=== PATIENT | male | born 1975 | race Caucasian/White ===

== ENCOUNTER 2019-11-14 09:28 | Inpatient (IN) | payer BC, SELFPAY ==
[~2019-11-14] VITALS: Ht 180.3 cm; Wt 167.4 kg
--- NOTE | 2019-11-14 09:28 | NUR ---
STEFANO JIMENEZ ALS TO ER BED 02. RN EVALUATING AT BEDSIDE.
--- NOTE | 2019-11-14 09:30 | NUR ---
C/O SOB, FEVER X 6 DAYS. DIARRHEA AND NAUSEA X 3 DAYS, DENIES VOMITING. SATTES NAUSEA OCCURS WHEN COUGHING EXCESSIVELY. CP WITH PRODUCTIVE COUGH, PAIN 10/22. PT WAS DIAGNOSED WITH COVID POSITIVE MONDAY, HAS BEEN TAKING AMOXICILLIN PAST 2 DAYS FOR TREATMENT. ON RA PTS O2 FALLS TO 89-90%. PT PLACED ON 4 L NC, O2 BETWEEN 94-96%. PT HAS HACKING COUGH, PRODUCTIVE SPUTUM. LABORED BREATHING. TACHYPNEA RR 35. PT TOOK TYLENOL APPROX 6 HOURS AGO PRN FEVER. AFEBRILE NOW. PMH- SLEEP APNEA, OBESITY
[2019-11-14 09:37] VITALS: BP 132/74
[2019-11-14] MEDS ORDERED: AMOX500C25 PO (09:42)
[2019-11-14] MEDS ORDERED: OMEP20TC12 PO (09:42)
--- NOTE | 2019-11-14 09:50 | NUR ---
IV INSERTED AND LABS DRAWN BEDSIDE
--- NOTE | 2019-11-14 10:05 | NUR ---
RT AT BEDSIDE
[2019-11-14 10:08] LABS: BASOPHILS # (AUTO) 0.2 K/uL (0.00-0.22); BASOPHILS % (AUTO) 3.7 % (0.0-2.0); EOSINOPHILS % (AUTO) 0.1 % (0.0-4.0); HEMATOCRIT 46.3 % (36-52); HEMOGLOBIN 15.3 g/dL (12.0-18.0); LYMPHOCYTES # (AUTO) 0.6 K/uL (2.0-11.5); LYMPHOCYTES % (AUTO) 12.2 % (20.5-51.1); MEAN CORPUSCULAR HEMOGLOBIN 29 pg (27-31); MEAN CORPUSCULAR HGB CONC 33 g/dL (33-37); MEAN CORPUSCULAR VOLUME 88.7 fL (80-94); MONOCYTES # (AUTO) 0.4 K/uL (0.8-1.0); MONOCYTES % (AUTO) 8.2 % (1.7-9.3); NEUTROPHILS # (AUTO) 3.6 K/uL (1.8-7.7); NEUTROPHILS % (AUTO) 75.8 % (42.2-75.2); PLATELET COUNT (AUTO) 176 K/uL (140-450); RED BLOOD CELL COUNT(AUTO) 5.22 MIL/uL (4.20-6.10); RED CELL DISTRIBUTION WIDTH 14.3 % (11.6-13.7); WHITE BLOOD COUNT (AUTO) 4.8 K/uL (4.8-10.8)
--- NOTE | 2019-11-14 10:12 | NUR ---
XRAY AT BEDSIDE
[2019-11-14 10:23] LABS: ANION GAP 6.9 (8-16); CARBON DIOXIDE 33.7 mmol/L (21-32); CREATININE 1.4 mg/dL (0.6-1.3); POTASSIUM 3.6 mmol/L (3.5-5.1)
[2019-11-14 10:29] LABS: ALBUMIN 2.7 g/dL (3.4-5.0); TOTAL BILIRUBIN 0.5 mg/dL (0.0-1.0)
--- NOTE | 2019-11-14 10:30 | NUR ---
PT PLACED ON OXYGEN MASK 8 L, O2 BETWEEN 96-98%
[2019-11-14 10:45] LABS: PROTHROMBIN TIME 9.9 secs (10.8-13.4)
[2019-11-14 10:46] LABS: D-DIMER 215 ng/ml (0-400); FIBRINOGEN 500 mg/dL (200-400)
[2019-11-14 10:51] LABS: C-REACTIVE PROTEIN QUANT 15.5 mg/dL (0.0-0.9)
--- NOTE | 2019-11-14 11:02 | NUR ---
PT PLACED ON 6 L NC, O2 BETWEEN 94-96%
--- NOTE | 2019-11-14 11:56 | NUR ---
PT STATES HE FEELS VERY ANXIOUS AND FEELS LIKE HE IS GOING TO FAINT. TEMP 99.9 ORALLY. COLD WASH CLOTHS PLACED ON PT. PT STATES SOME RELIEF FROM COLD WASHCLOTHES. ASSISTED PT WITH DEEP BREATHING EXERCISES.
--- NOTE | 2019-11-14 11:58 | NUR ---
PER DR STEWART, PT CAN HAVE ICE CHIPS
--- NOTE | 2019-11-14 13:00 | NUR ---
PT AFEBRILE, RR 26, DECREASED COUGHING. PT GIVEN URINAL
[2019-11-14] MEDS ORDERED: LORazepam 2 MG/ML VIAL IVP ONE (13:05)
--- NOTE | 2019-11-14 13:43 | NUR ---
ATIVAN IVP ADMINISTERED
[2019-11-14] MEDS: NACL 0.9% 1,000 ML IV SCH (14:01)
[2019-11-14] MEDS ORDERED: HYDROcodone/APAP 5/325 MG 1 TAB TAB PO PRN (14:05)
[2019-11-14] MEDS ORDERED: ONDANSETRON 4 MG/2 ML VIAL IVP PRN (14:05)
--- NOTE | 2019-11-14 14:30 | NUR ---
RECEIVED REPORT FROM LIGHT RAIL OPERATORCALIN VARGAS FOR CONTINUATION OF CARE. PT IS AAOX4, COOPERATIVE AND ABLE TO MAKE NEEDS KNOWN. PT ON 6L O2 VIA NC SATING 94%. PT SKIN INTACT. PT HAS IV ON THE LEFT AC 20G INFUSING NS @ 80ML/HR. IV INTACT AND PATENT. PT AMBULATORY WITHOUT ASSISTANCE BUT GETS SOB EASILY. INSTRUCTED PT TO CALL IF HE NEEDS TO GET OUT OF BED. PT VERBALIZED UNDERSTANDING. DISCUSSED POC WITH PT NAD PT VERBALIZED UNDERSTANDING. ALL SAFETY MEASURES IN PLACE. WILL ROUND FREQUENTLY ON PT. THROUGHOUT THE SHIFT.
--- NOTE | 2019-11-14 14:30 | NUR ---
Patient will be admitted to care of [facility]. Admited to TELE. Will go to room 114. Belongings list completed. Report to MADISYN LAYTON.
--- NOTE | 2019-11-14 14:37 | NUR ---
NADR, PT STATES SOME RELIEF FROM ATIVAN
--- NOTE | 2019-11-14 16:45 | NUR ---
PT TALKING ON HIS PHONE. ALL NEEDS MET.
[2019-11-14] MEDS ORDERED: LOVENOX 1MG/KG Q12H SUBQ SCH ×2 (18:20→21:00)
--- NOTE | 2019-11-14 18:24 | NUR ---
PT RESTING IN BED. ALL NEEDS MET.
--- NOTE | 2019-11-14 19:02 | NUR ---
WILL ENDORSE TO PANELBOARD OPERATOR FOR CONTINUITY OF CARE. PT IN STABLE CONDITION AT THIS TIME.
[2019-11-14] MEDS: AZITHROMYCIN 500 MG in DEXTROSE 5% 250 ML IV SCH (19:04)
[2019-11-14 20:00] VITALS: BP 115/76
--- NOTE | 2019-11-14 20:30 | NUR ---
PT AWAKE AND ALERT IN BED, ON 6L O2 VIA NC. PT WITH INTERMITTENT DRY COUGH, TACHYPNEIC WITH SOB ON EXERTION. PT EDUCATED ON PRONING. PT VERBALIZED UNDERSTANDING. PT ON TELE MONITORING. BED LOWERED WITH CALL LIGHT WITHIN REACH. WILL CONTINUE TO MONITOR
--- NOTE | 2019-11-14 20:40 | NUR ---
SPOKE WITH DR PEGUERO AND INFORMED HIM ABOUT THE 2 DOSES OF LOVENOX SCHEDULED FOR TONIGHT. PER , ADMINISTER 120MG DOSE.
[2019-11-14] MEDS: ENOXAPARIN 30 MG/0.3 ML SYR SUBQ SCH (21:00)
[2019-11-14] MEDS: PROMETH/CODEINE 6.25-10MG/5ML 5 ML UDC PO PRN (21:20)
[2019-11-14] MEDS: ENOXAPARIN 120 MG/0.8 ML SYR SUBQ SCH (21:20)
--- NOTE | 2019-11-14 23:00 | NUR ---
PT O2 SATURATION 88-89% ON 6L O2 VIA NC. PT REFUSES TO TRY SIMPLE MASK AT THIS TIME. PT PLACED ON 10L O2 VIA OXYMIZER. O2 SAT 92% AT THIS TIME
[2019-11-15] VITALS: BP 110/64
[2019-11-15] MEDS: ACETAMINOPHEN 325 MG TAB PO PRN (00:01)
--- NOTE | 2019-11-15 00:44 | NUR ---
TEMP CHECKED ORALLY, 98.3. NO S/S OF DISTRESS AT THIS TIME
[2019-11-15] MEDS: NACL 0.9% 1,000 ML IV SCH ×3 (02:31→20:48)
--- NOTE | 2019-11-15 04:30 | NUR ---
ASSISTED PATIENT TO AMBULATE TO THE BATHROOM TO VOID
[2019-11-15 04:59] VITALS: BP 115/76
[2019-11-15] MEDS: PROMETH/CODEINE 6.25-10MG/5ML 5 ML UDC PO PRN ×5 (05:02→22:18)
[2019-11-15 07:18] LABS: BASOPHILS % (AUTO) 0.4 % (0.0-2.0); HEMOGLOBIN 14.3 g/dL (12.0-18.0); LYMPHOCYTES # (AUTO) 0.6 K/uL (2.0-11.5); LYMPHOCYTES % (AUTO) 13.6 % (20.5-51.1); MEAN CORPUSCULAR HEMOGLOBIN 30 pg (27-31); MEAN CORPUSCULAR HGB CONC 33 g/dL (33-37); MEAN CORPUSCULAR VOLUME 88.7 fL (80-94); MONOCYTES # (AUTO) 0.4 K/uL (0.8-1.0); MONOCYTES % (AUTO) 8.3 % (1.7-9.3); NEUTROPHILS # (AUTO) 3.6 K/uL (1.8-7.7); NEUTROPHILS % (AUTO) 77.7 % (42.2-75.2); PLATELET COUNT (AUTO) 173 K/uL (140-450); RED BLOOD CELL COUNT(AUTO) 4.85 MIL/uL (4.20-6.10); RED CELL DISTRIBUTION WIDTH 14.3 % (11.6-13.7); WHITE BLOOD COUNT (AUTO) 4.7 K/uL (4.8-10.8)
--- NOTE | 2019-11-15 07:20 | NUR ---
RECEIVED BEDSIDE REPORT FROM GIFT SHOP CLERK RN, DANIELLE, FOR CONTINUITY OF CARE. PATIENT IS AAOX4, COOPERATIVE AND ABLE TO MAKE NEEDS KNOWN. PATIENT IS ON 10L OXIMIZER, WITH SAO2 AT 94%. SKIN INTACT. IV ON THE LEFT AC 20G INFUSING NS @ 80ML/HR. IV INTACT AND PATENT. PT AMBULATORY WITHOUT ASSISTANCE BUT GETS SOB EASILY. INSTRUCTED PT TO CALL IF HE NEEDS TO GET OUT OF BED. PT VERBALIZED UNDERSTANDING. POC IS DISCUSSED AND PATIENT VERBALIZES UNDERSTANDING. ALL SAFETY MEASURES IN PLACE. DROPLET ISOLATION IN PLACE FOR + COVID, WILL ROUND FREQUENTLY ON PT. WILL CONTINUE TO MONITOR.
--- NOTE | 2019-11-15 07:25 | NUR ---
PT REPORT GIVEN TO AM SHIFT
[2019-11-15 07:41] LABS: ALBUMIN 2.4 g/dL (3.4-5.0); ANION GAP 12.4 (8-16); CREATININE 1.1 mg/dL (0.6-1.3); MAGNESIUM 1.9 mg/dL (1.8-2.4); POTASSIUM 3.4 mmol/L (3.5-5.1); TOTAL BILIRUBIN 0.6 mg/dL (0.0-1.0)
[2019-11-15 08:00] VITALS: BP 116/71
--- NOTE | 2019-11-15 09:06 | NUR ---
PATIENT HAS BEEN SCREENED AND CATEGORIZED MODERATE NUTRITION RISK. PATIENT WILL BE SEEN WITHIN 3-5 DAYS OF ADMISSION. 11/17/19 11/19/[address]
--- NOTE | 2019-11-15 09:25 | NUR ---
PHENERGAN PRN GIVEN FOR PERSISTENT COUGH. NO SIGNS OF DISTRESS NOTED. WILL CONTINUE TO MONITOR.
[2019-11-15] MEDS: DEXAMETHASONE 4 MG/ML VIAL IVP SCH (09:28)
--- NOTE | 2019-11-15 09:50 | NUR ---
MORNING MEDICATIONS GIVEN. NO SIGNS OF DISTRESS NOTED. WILL CONTINUE TO MONITOR.
[2019-11-15] MEDS: ENOXAPARIN 30 MG/0.3 ML SYR SUBQ SCH ×2 (09:53→21:24)
[2019-11-15] MEDS: ENOXAPARIN 120 MG/0.8 ML SYR SUBQ SCH ×2 (09:53→21:24)
[2019-11-15] MEDS ORDERED: remdesivir COMMUNICATION ORDER 1 EA MISC MC PRN (11:55)
[2019-11-15 12:00] VITALS: BP 102/56
--- NOTE | 2019-11-15 12:50 | NUR ---
Spoke to Dr Nesbitt and notified him of Dr. Ruelas's order for Remdesivir. Per Dr Nesbitt, continue with physician orders. Pharmacist Tricai notified.
[2019-11-15] MEDS ORDERED: CLINICAL MONITORING MC PRN (12:55)
--- NOTE | 2019-11-15 13:44 | NUR ---
PHENERGAN PRN GIVEN FOR PERSISTENT COUGH. NO SIGNS OF DISTRESS NOTED. WILL CONTINUE TO MONITOR.
[2019-11-15] MEDS ORDERED: remdesivir 200 mg in NACL 0.9% 100 ML IV SCH (14:00)
--- NOTE | 2019-11-15 15:55 | NUR ---
AFTERNOON MEDICATIONS GIVEN. NO SIGNS OF DISTRESS NOTED. WILL CONTINUE TO MONITOR.
[2019-11-15 16:00] VITALS: BP 111/76
[2019-11-15] MEDS: AZITHROMYCIN 500 MG in DEXTROSE 5% 250 ML IV SCH (18:17)
--- NOTE | 2019-11-15 18:18 | NUR ---
INCREASED OXYGEN TO 14LPM VIA OXIMIZER, YET SAO2 REMAINS AT 86%. PATIENT IS ALERT AND AAOX4. NO COMPLAINS OF PAIN FROM PATIENT BUT DOES FEEL A LITTLE SHORT OF BREATH. WILL REPORT TO RT.
--- NOTE | 2019-11-15 18:18 | NUR ---
PHENERGAN PRN GIVEN FOR PERSISTENT COUGH. NO SIGNS OF DISTRESS NOTED. WILL CONTINUE TO MONITOR. V/S TAKEN, SAO2 DECREASED TO 85%, ATTEMPTED TO REACH RT BUT CALL DID NOT GO THROUGH. WILL REATTEMPT. WILL CONTINUE TO MONITOR.
--- NOTE | 2019-11-15 18:35 | NUR ---
ATTEMPTED TO REACH RT ABOUT PATIENT'S DESATURATION AT 85%, NO ANSWER OF THE MOMENT. WILL CONTINUE TO MONITOR. CHARGE NURSE SHAN IS AWARE.
--- NOTE | 2019-11-15 18:45 | NUR ---
REACHED RT, BILL. BILL IS BY THE BEDSIDE, OXYGEN INCREASED TO 15LPM VIA OXIMIZER WITH SAO2 AT 92%. NO SIGNS OF DISTRESS NOTED. WILL CONTINUE TO MONITOR.
--- NOTE | 2019-11-15 19:10 | NUR ---
ENDORSED PATIENT TO STERILE TECHNICIAN RNNELY, FOR CONTINUITY OF CARE.
--- NOTE | 2019-11-15 19:10 | NUR ---
RECEIVED PATIENT IN STABLE CONDITION FROM AM SHIFT NURSE FOR CONTINUITY OF CARE CARE. TELE PATIENT. RESPIRATIONS EVEN, UNLABORED. CONTINUES ON O2 15L VIA OXIMIZER, O2 SAT 94%. SKIN WARM, DRY. IV SITE TO LEFT ARM 20G PATENT/INTACT, INFUSING FLUIDS WELL. NO C/O PAIN. NO S/S ACUTE DISTRESS. CALL LIGHT WITHIN REACH. ISOLATION PRECAUTIONS OBSERVED BY ALL STAFF.
[2019-11-15 20:00] VITALS: BP 132/87
--- NOTE | 2019-11-15 21:00 | NUR ---
ASSISTED PATIENT TO RESTROOM. NO C/O PAIN. NO S/S ACUTE DISTRESS. CALL LIGHT WITHIN REACH. ISOLATION PRECAUTIONS IN PLACE.
--- NOTE | 2019-11-15 23:00 | NUR ---
PATIENT ASLEEP. NO S/S ACUTE DISTRESS. CALL LIGHT WITHIN REACH. ISOLATION PRECAUTIONS IN PLACE.
[2019-11-16] VITALS: BP 121/71
--- NOTE | 2019-11-16 01:00 | NUR ---
MADE ROUNDS. PATIENT IS ASLEEP. NO S/S ACUTE DISTRESS. CALL LIGHT WITHIN REACH. ISOLATION PRECAUTIONS IN PLACE.
--- NOTE | 2019-11-16 03:00 | NUR ---
ASSISTED PATIENT TO SITTING POSITION FROM PRONE. PATIENT TOLERATED WELL. NO C/O PAIN. NO S/S ACUTE DISTRESS. CALL LIGHT WITHIN REACH. ISOLATION PRECAUTIONS IN PLACE.
[2019-11-16 04:00] VITALS: BP 132/69
[2019-11-16] MEDS: PROMETH/CODEINE 6.25-10MG/5ML 5 ML UDC PO PRN ×5 (04:50→22:33)
[2019-11-16] MEDS: HYDROcodone/APAP 5/325 MG 1 TAB TAB PO PRN ×4 (04:50→18:01)
--- NOTE | 2019-11-16 05:36 | NUR ---
PATIENT ASLEEP AND IN STABLE CONDITION. NO S/S ACUTE DISTRESS. CALL LIGHT WITHIN REACH. ISOLATION PRECAUTIONS OBSERVED.
--- NOTE | 2019-11-16 07:10 | NUR ---
RECEIVED PATIENT IN STABLE CONDITION FROM PM SHIFT NURSE FOR CONTINUITY OF CARE. TELE PATIENT. PATIENT RESTING IN BED COMFORTABLY. RESPIRATIONS EVEN, UNLABORED. ON O2 15L VIA OXIMIZER, O2 SAT 92%. SKIN WARM, DRY. IV SITE TO LEFT ARM 20G PATENT/INTACT, INFUSING FLUIDS WELL. NO C/O PAIN AT THIS TIME. NO S/S ACUTE DISTRESS. CALL LIGHT WITHIN REACH. ISOLATION PRECAUTIONS OBSERVED BY ALL STAFF.
[2019-11-16 08:00] VITALS: BP 97/52
[2019-11-16 08:21] LABS: BASOPHILS # (AUTO) 0.1 K/uL (0.00-0.22); BASOPHILS % (AUTO) 1.7 % (0.0-2.0); EOSINOPHILS % (AUTO) 0.1 % (0.0-4.0); HEMATOCRIT 41.4 % (36-52); HEMOGLOBIN 13.8 g/dL (12.0-18.0); LYMPHOCYTES # (AUTO) 0.7 K/uL (2.0-11.5); LYMPHOCYTES % (AUTO) 16.8 % (20.5-51.1); MEAN CORPUSCULAR HEMOGLOBIN 30 pg (27-31); MEAN CORPUSCULAR HGB CONC 33 g/dL (33-37); MEAN CORPUSCULAR VOLUME 88.6 fL (80-94); MONOCYTES # (AUTO) 0.4 K/uL (0.8-1.0); NEUTROPHILS % (AUTO) 72.4 % (42.2-75.2); PLATELET COUNT (AUTO) 175 K/uL (140-450); RED BLOOD CELL COUNT(AUTO) 4.67 MIL/uL (4.20-6.10); RED CELL DISTRIBUTION WIDTH 14.4 % (11.6-13.7); WHITE BLOOD COUNT (AUTO) 4.2 K/uL (4.8-10.8)
[2019-11-16 08:44] LABS: ALBUMIN 2.2 g/dL (3.4-5.0); ANION GAP 10.2 (8-16); CARBON DIOXIDE 30.7 mmol/L (21-32); MAGNESIUM 2.1 mg/dL (1.8-2.4); POTASSIUM 3.9 mmol/L (3.5-5.1); TOTAL BILIRUBIN 0.5 mg/dL (0.0-1.0)
[2019-11-16] MEDS: DEXAMETHASONE 4 MG/ML VIAL IVP SCH (09:15)
--- NOTE | 2019-11-16 09:16 | NUR ---
PRN PAIN AND COUGH MEDICATION GIVEN TO PATIENT. HE TOLERATED THEM WELL. NO COMPLAINTS AT THIS TIME. DROPLET PRECAUTIONS IN PLACE, CALL LIGHT WITHIN REACH, WILL CONTINUE TO MONITOR PATIENT.
[2019-11-16] MEDS: ENOXAPARIN 120 MG/0.8 ML SYR SUBQ SCH ×2 (09:17→21:52)
[2019-11-16] MEDS: ENOXAPARIN 30 MG/0.3 ML SYR SUBQ SCH ×2 (09:18→21:53)
--- NOTE | 2019-11-16 09:18 | NUR ---
ORDERED MEDICATIONS GIVEN. PATIENT TOLERATED THEM WELL. NO COMPLAINTS AT THIS TIME. WILL CONTINUE TO MONITOR PATIENT.
[2019-11-16 12:00] VITALS: BP 98/55
[2019-11-16] MEDS: DOCUSATE SODIUM 100 MG GELCAP PO PRN (13:11)
[2019-11-16] MEDS: remdesivir 100 mg in NACL 0.9% 100 ML IV SCH (14:48)
[2019-11-16 15:30] VITALS: BP 95/50
--- NOTE | 2019-11-16 18:01 | NUR ---
PRN PAIN AND COUGH MEDICATION GIVEN TO PATIENT. HE TOLERATED THEM WELL. PATIENT CURRENTLY SITTING ON CHAIR AT SIDE OF BED EATING DINNER. NO COMPLAINTS AT THIS TIME. DROPLET PRECAUTIONS IN PLACE, CALL LIGHT WITHIN REACH, WILL CONTINUE TO MONITOR PATIENT.
[2019-11-16] MEDS: AZITHROMYCIN 500 MG in DEXTROSE 5% 250 ML IV SCH (18:02)
[2019-11-16 20:00] VITALS: BP 113/77
--- NOTE | 2019-11-16 20:50 | NUR ---
RECEIVED PT LYING IN BED, PATIENT ALERT, AWAKE ORIENTED, ABLE TO MAKE NEEDS KNOWN, SKIN WARM TO TOUCH RESP. EVEN AND UNLABORED, WITH DRY ON AND OFF COUGHING, NOTICED O2 SAT 86, WITH 15L O2 , ENCOURAGED TO AMBULATE AND PT AGREED, WENT TO THE BATHROOM, PER PT HE IS SUPPOSED TO GET CPAP BUT BECAUSE OF THE COVID IT WAS [place]VARADO, WILL CALL MD.
--- NOTE | 2019-11-16 21:05 | NUR ---
RT AT BEDSIDE, CHANGED N/C TO NON REBREATHER, O2 SAT 85, RT EVALUATING PATIENT WILL CALL MD.
--- NOTE | 2019-11-16 21:17 | NUR ---
PER RT HECTOR HE WILL CALL DR MCLEOD AND SUGGEST PT TO BE TRANSFER TO ICU FOR CLOSE OBSERVATION
--- NOTE | 2019-11-16 21:23 | NUR ---
WENT BACK TO PT ROOM O2 SAT 80, WILL CALL .
--- NOTE | 2019-11-16 21:27 | NUR ---
PAGING MD AT THIS TIME, MD WILL CALL BACK.
--- NOTE | 2019-11-16 21:45 | NUR ---
DR LIANG SAID TO PUT PATIENT IN HIFLO N/C 20L TO KEEP FIO2 ABOVE 88 PERCENTAND IF ITS LOWER SHOULD BE TRANSFER TO ICU, COMMUNICATED WITH RT
--- NOTE | 2019-11-16 22:28 | NUR ---
PT AWAKE, ASKING FOR COUGH MEDICINE, O2 SAT 85 IN NON REBREATHER
--- NOTE | 2019-11-16 22:35 | NUR ---
RT AT BEDSIDE, WILL PUT THE HI FLOW O2 , PAT ALERT, AWAKE, ORIENTED, ABLE TO MAKE NEEDS KNOW, WILL CHECK PT FREQUENTLY.
--- NOTE | 2019-11-16 22:48 | NUR ---
PER RT HE PUT ON 50 L AND FIO2 100 PERCENT, WILL CHECK PATIENT LATER
--- NOTE | 2019-11-16 23:34 | NUR ---
PT O2 SAT 85, PT CLAIMED I DONT FEEL GOOD, I WANT TO SLEEP, WILL ASK RECOMMENDATION OF MD.
--- NOTE | 2019-11-16 23:41 | NUR ---
PT ALERT, AWAKE, O2 SAT 84, TALKING TO IN THE PHONE, PT REQUESTING WARM WATER, WAITING FOR ICU BED.
[2019-11-17] VITALS (7 sets, daily range): BP systolic 102–120; BP diastolic 60–70
--- NOTE | 2019-11-17 00:42 | NUR ---
PATIENT SLEEPING AT THIS TIME, O2 SAT 90, WILL KEEP CHECKING PT
[2019-11-17] MEDS: ACETAMINOPHEN 325 MG TAB PO PRN ×2 (01:45→20:23)
[2019-11-17] MEDS: DOCUSATE SODIUM 100 MG GELCAP PO PRN ×3 (01:46→20:23)
--- NOTE | 2019-11-17 01:59 | NUR ---
PATIENT AWAKE, O2 SAT 87, ENCOURAGED TO SLEEP, PATIENT COOPERATIVE,
--- NOTE | 2019-11-17 03:26 | NUR ---
PATIENT SLIGHTLY SLEEPING, CLAIMED I AM DOING FINE , I FEEL OK, ASKED IF NEED SOME COUGH MEDICATION, PER PATIENT NO AT THIS TIME.
--- NOTE | 2019-11-17 07:12 | NUR ---
RECEIVED PATIENT REPORT FROM PM SHIFT NURSE FOR CONTINUITY OF CARE. SR ON TELE MONITOR. PATIENT RESTING IN BED COMFORTABLY. O2 SATURATION AT 85% ON HIGH FLOW OXYGEN. SKIN WARM, DRY. IV SITE TO LEFT ARM 20G PATENT/INTACT, INFUSING FLUIDS WELL. NO C/O PAIN AT THIS TIME. NO S/S ACUTE DISTRESS. CALL LIGHT WITHIN REACH. DROPLET PRECAUTIONS IN PLACE, CALL LIGHT WITHIN REACH, WILL CONTINUE TO MONITOR PATIENT.
[2019-11-17 07:24] LABS: HEMATOCRIT 42.2 % (36-52); HEMOGLOBIN 13.9 g/dL (12.0-18.0); MEAN CORPUSCULAR HEMOGLOBIN 30 pg (27-31); MEAN CORPUSCULAR HGB CONC 33 g/dL (33-37); MEAN CORPUSCULAR VOLUME 89.4 fL (80-94); PLATELET COUNT (AUTO) 227 K/uL (140-450); RED BLOOD CELL COUNT(AUTO) 4.72 MIL/uL (4.20-6.10); RED CELL DISTRIBUTION WIDTH 14.2 % (11.6-13.7); WHITE BLOOD COUNT (AUTO) 5.4 K/uL (4.8-10.8)
[2019-11-17 07:28] LABS: ANION GAP 10.5 (8-16); CARBON DIOXIDE 29.6 mmol/L (21-32); CREATININE 0.9 mg/dL (0.6-1.3); POTASSIUM 4.1 mmol/L (3.5-5.1)
[2019-11-17 08:09] LABS: PHOSPHORUS 3.3 mg/dL (2.5-4.9)
[2019-11-17 08:15] LABS: BASOPHILS % (MANUAL) 0 % (0-2); EOSINOPHILS % (MANUAL) 0 % (0-4); LYMPHOCYTES % (MANUAL) 11 % (20-46); MONOCYTES % (MANUAL) 8 % (5-12)
[2019-11-17] MEDS: DEXAMETHASONE 4 MG/ML VIAL IVP SCH (08:19)
--- NOTE | 2019-11-17 08:30 | NUR ---
PT FOUND ON HIGH FLOW OXYGEN AT 100% 60L O2 SAT WAS 85% RN SHY CONCERNED PT IS AWAKE AND ALERT WITH OUT SOB OR DISTRESS, PLACED PT ON NRB AT 15L AND O2 SAT IS 91% AND RN SHY NOTIFIED AT BEDSIDE
[2019-11-17] MEDS: ENOXAPARIN 30 MG/0.3 ML SYR SUBQ SCH ×2 (08:35→20:30)
--- NOTE | 2019-11-17 08:40 | NUR ---
Ordered medication given. Patient tolerated it well. Patient currently on 15L oximizer, O2 saturation 87%. No s/s or sob or distress noted. Patient denies pain. Will continue to monitor patient.
--- NOTE | 2019-11-17 08:48 | NUR ---
PT C/O HEARTBURN, HOMEMED OMEPRAZOLE 40 MG PO PRN WITHHELD ON ADMIT. PAGED DR. LIANG. NEW ORDER IN FOR PROTONIX 40MG IVP DAILY. ORDERS NOTED AND WILL BE CARRIED OUT.
[2019-11-17] MEDS: PROMETH/CODEINE 6.25-10MG/5ML 5 ML UDC PO PRN ×2 (08:57→13:28)
[2019-11-17] MEDS: PANTOPRAZOLE 40 MG INJ VIAL IVP SCH (08:57)
--- NOTE | 2019-11-17 10:20 | NUR ---
120 mg Lovenox SQ given at this time. Was not in stock at 0900. Patient tolerated it well. No complaints at this time. Will continue to monitor patient.
[2019-11-17] MEDS: ENOXAPARIN 120 MG/0.8 ML SYR SUBQ SCH ×2 (10:50→20:29)
[2019-11-17 12:40] LABS: ALBUMIN 2.3 g/dL (3.4-5.0); BILIRUBIN,DIRECT 0.1 mg/dL (0.0-0.3); TOTAL BILIRUBIN 0.5 mg/dL (0.0-1.0)
[2019-11-17] MEDS ORDERED: FUROSEMIDE 20 MG/2 ML VIAL IVP SCH (12:40)
[2019-11-17] MEDS: remdesivir 100 mg in NACL 0.9% 100 ML IV SCH (13:26)
--- NOTE | 2019-11-17 13:30 | NUR ---
One time dose of Lasix given. Educated patient about indications and benefits. He verbalized understanding. Ordered medications given and prn cough medication. Patient tolerated them well. Educated patient about convalescent plasma benefits and indication. Dr. Roy spoke to patient and obtained consent, patient signed consent to plasma transfusion. Patient currently sitting in chair on side of bed, no s/s of sob or distress noted at this time, currently satting at 88% on 15L Oximizer. Will continue to monitor patient.
[2019-11-17] MEDS: AZITHROMYCIN 500 MG in DEXTROSE 5% 250 ML IV SCH (18:04)
--- NOTE | 2019-11-17 19:30 | NUR ---
REPORT GIVEN TO INDUSTRIAL ENERGY ENGINEER NURSE. PATIENT IN STABLE CONDITION.
--- NOTE | 2019-11-17 20:09 | NUR ---
RECEIVED PT ALERT, AWAKE, ORIENTED, SITTING IN CHAIR, O2 MAXIMIZER AT 15L, O2 SAT 88, PATIENT CLAIMED HE FEEL BETTER, ASSISTED PT BACK TO BED.
--- NOTE | 2019-11-17 21:07 | NUR ---
PATIENT SLEEPING O2 SAT 92
--- NOTE | 2019-11-17 21:18 | NUR ---
PT RESTING COMFORTABLY SPO2 93% HR 66 ON 15L OXY
[2019-11-18] VITALS: BP 154/74
[2019-11-18] MEDS: PROMETH/CODEINE 6.25-10MG/5ML 5 ML UDC PO PRN (00:32)
[2019-11-18 05:58] VITALS: BP 113/77
--- NOTE | 2019-11-18 07:30 | NUR ---
RECEIVED BEDSIDE REPORT FROM BRANCH OFFICE ADMINISTRATOR RN, HARINDER, FOR CONTINUITY OF CARE. SR ON TELE MONITOR. PATIENT RESTING IN BED COMFORTABLY, AAOX4 AND ABLE TO MAKE NEEDS KNOWN. PATIENT IS ON 13LPM OXIMIZER WITH SAO2 AT 87% ON, RESPIRATIONS EVEN AND UNLABORED. SKIN WARM, DRY. IV SITE TO LEFT ARM 20G PATENT/INTACT, INFUSING FLUIDS WELL. NO C/O PAIN AT THIS TIME. NO S/S ACUTE DISTRESS. CALL LIGHT WITHIN REACH. DROPLET PRECAUTIONS IN PLACE, POC DISCUSSED AND PATIENT VERBALIZES UNDERSTANDING, WILL CONTINUE TO MONITOR PATIENT.
[2019-11-18 08:00] VITALS: BP 102/63
[2019-11-18 08:16] LABS: CARBON DIOXIDE 33.6 mmol/L (21-32); POTASSIUM 3.6 mmol/L (3.5-5.1)
[2019-11-18 08:17] LABS: BASOPHILS % (AUTO) 0.6 % (0.0-2.0); HEMATOCRIT 43.7 % (36-52); HEMOGLOBIN 14.3 g/dL (12.0-18.0); LYMPHOCYTES # (AUTO) 0.9 K/uL (2.0-11.5); MEAN CORPUSCULAR HEMOGLOBIN 29 pg (27-31); MEAN CORPUSCULAR HGB CONC 33 g/dL (33-37); MEAN CORPUSCULAR VOLUME 89.5 fL (80-94); MONOCYTES # (AUTO) 0.6 K/uL (0.8-1.0); NEUTROPHILS # (AUTO) 6.1 K/uL (1.8-7.7); NEUTROPHILS % (AUTO) 79.4 % (42.2-75.2); PLATELET COUNT (AUTO) 275 K/uL (140-450); RED BLOOD CELL COUNT(AUTO) 4.88 MIL/uL (4.20-6.10); RED CELL DISTRIBUTION WIDTH 14.1 % (11.6-13.7); WHITE BLOOD COUNT (AUTO) 7.7 K/uL (4.8-10.8)
[2019-11-18 08:29] LABS: ALBUMIN 2.3 g/dL (3.4-5.0); BILIRUBIN,DIRECT 0.2 mg/dL (0.0-0.3); TOTAL BILIRUBIN 0.5 mg/dL (0.0-1.0)
[2019-11-18 09:19] LABS: C-REACTIVE PROTEIN QUANT 3.6 mg/dL (0.0-0.9)
[2019-11-18] MEDS: PANTOPRAZOLE 40 MG INJ VIAL IVP SCH (09:23)
[2019-11-18] MEDS: DEXAMETHASONE 4 MG/ML VIAL IVP SCH (09:23)
[2019-11-18] MEDS: ENOXAPARIN 30 MG/0.3 ML SYR SUBQ SCH ×2 (09:24→20:27)
[2019-11-18] MEDS: ENOXAPARIN 120 MG/0.8 ML SYR SUBQ SCH ×2 (09:25→20:27)
--- NOTE | 2019-11-18 09:25 | NUR ---
MORNING MEDICATIONS GIVEN. NO SIGNS OF DISTRESS NOTED. WILL CONTINUE TO MONITOR.
--- NOTE | 2019-11-18 09:57 | NUR ---
POLICY SERVICE COORDINATOR NOTE: AMY WAS UNABLE TO MEET PATIENT AT BEDSIDE DUE TO MEDICAL CONDITION. AMY CONTACTED OLI SMITH [phone]. AMY LEFT VM. AMY WILL FOLLOW UP. Addendum: 11/18/19 at 1401 by Jesus Fry SS [facility] Patient: Vinicio Smith JR : 1975 Age/Sex: 44/M Unit#: [id number] Room/Bed: 114/A User: Jesus Fry SS Date: 11/18/19 13:59 Type: CM Discharge Plan Assessment Patient's Orientation Person Situation Place Time Information Provided By OLI SMITH Comments SW WAS UNABLE TO MEET PATIENT AT BEDSIDE DUE TO MEDICAL CONDITION. Operations Supervisor 2Nd Shift, Realtionship and Phone Number OLIRenetta GARDUNOLUIS MOTHER [phone] [facility] Power of Applications Analyst No Does Patient Have a POLST No Identifying Problems No Social Work Triggers Is A Social Work Consult Needed No Mandate Report Filed No Explanation Of Identifying Problems PATIENT IS A 44-YEAR-OLD MALE ADMITTED FOR ACUTE HYPOXIC RESPIRATORY FAILURE. PATIENT HAS PMHX OF ASTHMA. Admitted From Home Pre-Admission Level Of Functioning Status Independent/Ambulatory Prior Resources/Services Used In Last 12 Months No Prior Resources Used Prior DME No Prior DME Used Living Situation Lives With Family House Patient Had Caregiver No Home Support No Caregiver Issues Financial Issues No Known Financial Issue Factors/Needs No D/C Needs Identified Pt/Rep Participated In Discharge Plan Yes Patient/Family Agress With Discharge Plan Yes Discharge Plan Comments TENTATIVE DISCHARGE PLAN IS FOR PATIENT TO RETURN HOME. DC Plan Status Initiated
[2019-11-18] MEDS: ACETAMINOPHEN 325 MG TAB PO PRN ×2 (10:11→20:47)
--- NOTE | 2019-11-18 10:11 | NUR ---
PATIENT COMPLAINS OF HEADACHE PAIN 08/22. TYLENOL GIVEN. NO SIGNS OF DISTRESS NOTED. WILL CONTINUE TO MONITOR.
[2019-11-18 12:00] VITALS: BP 109/57
--- NOTE | 2019-11-18 12:00 | NUR ---
V/S TAKEN AND IS WNL. WILL CONTINUE TO MONITOR.
--- NOTE | 2019-11-18 12:10 | NUR ---
SHANNON BERNARD, BY THE BEDSIDE. PATIENT USED INCENTIVE SPIROMETER AND EXERCISED DEEP BREATHING. PATIENT SAO2 INCREASED TO 94% WITH 13LPM O2 VIA OXIMIZER. PATIENT STATES TO BE TIRED. WILL CONTINUE TO MONITOR.
[2019-11-18] MEDS: remdesivir 100 mg in NACL 0.9% 100 ML IV SCH (13:56)
[2019-11-18 16:00] VITALS: BP 105/60
[2019-11-18] MEDS: AZITHROMYCIN 500 MG in DEXTROSE 5% 250 ML IV SCH (18:10)
--- NOTE | 2019-11-18 19:00 | NUR ---
RECEIVED BEDSIDE REPORT FROM DAY SHIFT NURSE. PATIENT IS AWAKE AND COOPERATIVE. RESPIRATION EVEN UNLABORED ON 13L OXYMIZER. NO DISTRESS NOTED. SKIN IS WARM AND DRY. IV PATENT AND INTACT. PLAN OF CARE WAS DISCUSSED. ALL SAFETY MEASURES IN PLACE. BED IS AT LOW POSITION. CALL LIGHT WITHIN REACH. WILL CONTINUE TO MONITOR.
--- NOTE | 2019-11-18 19:20 | NUR ---
ENDORSED PATIENT TO ASSISTANT PROFESSOR RN, PATSY, FOR CONTINUITY OF CARE.
[2019-11-18 20:00] VITALS: BP 108/71
--- NOTE | 2019-11-18 20:05 | NUR ---
INITIAL ASSESSMENT DONE. VITALS WERE TAKEN. PATIENT IN STABLE CONDITION. NO DISTRESS NOTED. WILL CONTINUE TO MONITOR.
--- NOTE | 2019-11-18 20:27 | NUR ---
ALL SCHEDULED MEDS WERE GIVEN PER ORDER. NO ASE NOTED. WILL CONTINUE TO MONITOR.
--- NOTE | 2019-11-18 20:47 | NUR ---
PATIENT COMPLAINED OF HEADACHE 5/10. PRN TYLENOL GIVEN PER ORDER. WILL CONTINUE TO MONITOR.
--- NOTE | 2019-11-18 22:40 | NUR ---
ADMINISTERED 1 UNIT OF PLASMA PER ORDER. WILL CONTINUE TO MONITOR.
[2019-11-18 23:19] LABS: LACTATE DEHYDROGENASE 462 IU/L (0-214)
--- NOTE | 2019-11-18 23:30 | NUR ---
1 UNIT OF BAG OF PLASMA GIVEN. NO TRANSFUSION REACTION NOTED. WILL CONTINUE TO MONITOR.
[2019-11-19] VITALS: BP 132/78
--- NOTE | 2019-11-19 00:05 | NUR ---
VITALS WERE TAKEN. PATIENT IN STABLE CONDITION. NO DISTRESS NOTED. WILL CONTINUE TO MONITOR.
--- NOTE | 2019-11-19 00:13 | NUR ---
2 MORE UNITS OF BAG OF PLASMA AWAITING TO BE TRANSFUSE. OF RIGHT NOW WE DON'T HAVE ANY Y-TUBING TO TRANSFUSE THE PLASMA. NOTIFIED THE CHIEF OF HARBOR PATROL PER CHIEF OF HARBOR PATROL ENDORSE TO AM NURSE TOMORROW. WILL CONTINUE TO MONITOR.
--- NOTE | 2019-11-19 02:10 | NUR ---
CHECKED PATIENT. PATIENT SLEEPING RESPIRATION EVEN UNLABORED ON 13L O2 OXYMIZER. WILL CONTINUE TO MONITOR.
[2019-11-19 04:00] VITALS: BP 109/66
--- NOTE | 2019-11-19 04:10 | NUR ---
VITALS WERE TAKEN. PATIENT IN STABLE CONDITION. NO DISTRESS NOTED. WILL CONTINUE TO MONITOR.
[2019-11-19] MEDS: ACETAMINOPHEN 325 MG TAB PO PRN ×3 (04:31→20:18)
--- NOTE | 2019-11-19 04:31 | NUR ---
PATIENT COMPLAINED OF HEADACHE 5/10. PRN TYLENOL GIVEN PER ORDER. WILL CONTINUE TO MONITOR.
--- NOTE | 2019-11-19 07:11 | NUR ---
ENDORSED PATIENT TO DAY SHIFT NURSE FOR CONTINUITY OF CARE. PATIENT IN STABLE CONDITION
[2019-11-19 07:31] LABS: BASOPHILS % (AUTO) 0.2 % (0.0-2.0); EOSINOPHILS % (AUTO) 0.1 % (0.0-4.0); HEMATOCRIT 43.1 % (36-52); HEMOGLOBIN 14.1 g/dL (12.0-18.0); LYMPHOCYTES # (AUTO) 1.1 K/uL (2.0-11.5); MEAN CORPUSCULAR HEMOGLOBIN 29 pg (27-31); MEAN CORPUSCULAR HGB CONC 33 g/dL (33-37); MEAN CORPUSCULAR VOLUME 89.5 fL (80-94); MONOCYTES # (AUTO) 0.5 K/uL (0.8-1.0); MONOCYTES % (AUTO) 5.3 % (1.7-9.3); NEUTROPHILS # (AUTO) 8.6 K/uL (1.8-7.7); NEUTROPHILS % (AUTO) 83.4 % (42.2-75.2); PLATELET COUNT (AUTO) 290 K/uL (140-450); RED BLOOD CELL COUNT(AUTO) 4.82 MIL/uL (4.20-6.10); RED CELL DISTRIBUTION WIDTH 14.3 % (11.6-13.7); WHITE BLOOD COUNT (AUTO) 10.3 K/uL (4.8-10.8)
--- NOTE | 2019-11-19 07:34 | NUR ---
RECEIVED REPORT FROM SCRAP IRON LOADER RN FOR CONTINUITY OF CARE. PT IS AAOX4, COOPERATIVE AND ABLE TO MAKE NEEDS KNOWN. PT ON 13L O2 VIA OXYMIZER. PT SATING 89-90%. PER SCRAP IRON LOADER THIS IS ACCEPTABLE FOR PT. SKIN INTACT. DISCUSSED POC WITH PT AND PT VERBALIZED UNDERSTANDING. ALL NEEDS MET. WILL ROUND FREQUENTLY THROUGHOUT THE SHIFT.
[2019-11-19 07:50] LABS: ALBUMIN 2.4 g/dL (3.4-5.0); ANION GAP 10.8 (8-16); CARBON DIOXIDE 29.8 mmol/L (21-32); CREATININE 0.9 mg/dL (0.6-1.3); POTASSIUM 3.6 mmol/L (3.5-5.1); TOTAL BILIRUBIN 0.7 mg/dL (0.0-1.0)
[2019-11-19 07:51] LABS: PHOSPHORUS 2.9 mg/dL (2.5-4.9)
[2019-11-19 08:00] VITALS: BP 111/74
[2019-11-19] MEDS: ENOXAPARIN 120 MG/0.8 ML SYR SUBQ SCH ×2 (09:22→20:19)
[2019-11-19] MEDS: PANTOPRAZOLE 40 MG INJ VIAL IVP SCH (09:22)
[2019-11-19] MEDS: DEXAMETHASONE 4 MG/ML VIAL IVP SCH (09:22)
[2019-11-19] MEDS: ENOXAPARIN 30 MG/0.3 ML SYR SUBQ SCH ×2 (09:23→20:19)
--- NOTE | 2019-11-19 09:51 | NUR ---
PT IS UPSET BECAUSE HE CAN NOT GET HIS NEXT INFUSION OF CONVALESCENT PLASMA BECAUSE WE DO NOT HAS BLOOD ADMINISTRATION TUBING AND BECAUSE HIS BREAKFAST ARRIVED LATE. I EXPLAINED TO HIM THAT WE HAVE NO CLOTH WINDER AND WE WERE NOT AWARE SO TRAYS WENT OUT LATE. WILL NOTIFY HARINDER OF THE SITUATION. PT MEDSD ADMINISTERED AND BREAKFAST SERVED.
--- NOTE | 2019-11-19 11:48 | NUR ---
PT DOING WELL. ALL NEEDS MET. WILL CONTINUE TO ROUND FREQUENTLY.
[2019-11-19 12:00] VITALS: BP 114/69
[2019-11-19] MEDS: PROMETH/CODEINE 6.25-10MG/5ML 5 ML UDC PO PRN ×2 (12:50→20:17)
--- NOTE | 2019-11-19 12:58 | NUR ---
DC PLANNIN YRS OLD MALE PATIENT WAS ADMITTED FROM HOME WITH A DX OF ACUTE HYPOXIC RESP FAILURE. PT HAS A HX OF SLEEP APNEA/ASTHMA. PER PT RECENTLY TESTED TESTED POSITIVE FOR COVID AT AN OUTSIDE FACILITY /CXR SHOWED BILATERAL LUNG INFILTRATES. STARTED ON IV DECADRON 6MG DAILY RT PROTOCOL INITIATED ,FULL DOSE OF LOVENOX SUBQ . PULMO AND ID CONSULTED . PT IS ON 13L OXIMIZER , CONTINUE IV ABX AZITHROMYCIN AND ROCEPHIN, ON RAMDISIVIR IV AND CONVALESCENT PLASMA. DC PLAN TO GO HOME WHEN STABLE Addendum: 11/19/19 at 1355 by Ary Her CM DC PLANNING: CALLED [facility] [phone] [facility]ONS[facility] FOR H[facility]ITAL STAY PROVIDED PENDING AUTH #. PER [facility] RESPONSIBLE FOR DISCHARGE NEEDS . CM TO FOLLOW Addendum: 11/22/19 at 1658 by Ary Her CM DC PLANNING CONTINUE IV ABX ZOMORAIMAN , ELISABETHMOHITRON ,CONTINUE CURRENT THERAPY, STILL ON O2 10L WITH OXYMIZER DC PLAN TO GO HOME WHEN STABLE CM TO FOLLOW Addendum: 11/25/19 at 1143 by Adriana Garcia CM FAXED PATIENTS HOME 02 ORDER TO [facility] [phone] AND SPOKE WITH LUIS [phone] OPT 1. SHE WAS REQUESTING TO VERIFY PATIENTS ADDRESS. FOLLOWED UP WITH PATIENT HE VERIFIED ADDRESS ON THE FACE SHEET IS CORRECT AND IF WE NEED TO GET A HOLD OF A FAMILY MEMBER TO DELIVER THE HOME O2 WE CAN SPEAK TO DAUGHTER LAM MARCIAL [phone]. FAXED PATIENTS CLINICALS TO [facility] FOR HOME O2 WILL FOLLOW UP. Addendum: 11/25/19 at 1553 by Adriana Garcia CM FOLLOWED UP WITH [facility] C[facility] THE PATIENTS HOME O2 WILL BE DELIVERED BETWEEN 4:00 PM- 7:00 PM. NOTIFIED GALA VASQUEZ
--- NOTE | 2019-11-19 13:35 | NUR ---
PT SITTING IN BEDSIDE CHAIR. ALL NEEDS MET. CALL LIGHT WITHIN REACH. WILL CONTINUE TO ROUND FREQUENTLY ON PT.
[2019-11-19] MEDS: remdesivir 100 mg in NACL 0.9% 100 ML IV SCH (14:51)
--- NOTE | 2019-11-19 15:46 | NUR ---
PT RESTING AT BEDSIDE WATCHING TV. ALL NEEDS MET. WILL CONTINUE TO ROUND FREQUENTLY ON PT. BED IN LOW POSITION, CALL LIGHT WITHIN REACH.
[2019-11-19 16:00] VITALS: BP 106/70
--- NOTE | 2019-11-19 16:21 | NUR ---
11/19/19 RD INITIAL ASSESSMENT COMPLETED PLEASE REFER TO NUTRITION ASSESSMENT UNDER CARE ACTIVITY FOR ESTIMATED NUTRITIONAL NEEDS. 1. CONTINUE MECHANICAL SOFT NA2GM DIET TOLERATED 2. CONTINUE ENSURE BID 3. RD TO FOLLOW-UP 3-5 DAYS, MODERATE RISK NADEEM MARKS RD
--- NOTE | 2019-11-19 17:37 | NUR ---
PT SITTING AT BEDSIDE WAITING FOR DINNER. I TOLD HIM DINNER SHOULD BE SERVED BY 1800. PT VERBALIZED UNDERSTANDING.
--- NOTE | 2019-11-19 18:51 | NUR ---
WILL ENDORSE PT TO CAR GREASER FOR CONTINUITY OF CARE. PT IN STABLE CONDITION AT THIS TIME.
--- NOTE | 2019-11-19 19:15 | NUR ---
RECEIVED REPORT FROM DAY SHIFT NURSE FOR CONTINUITY OF CARE. PATIENT IN STABLE CONDITION. RESPIRATIONS EVEN AND UNLABORED, O2 13L VIA OXYMIZER. IV INTACT AND PATENT. SAFETY MEASURES IN PLACE. BED IN LOW POSITION. CALL LIGHT WITHIN REACH. WILL CONTINUE TO MONITOR.
[2019-11-19 20:00] VITALS: BP 111/63
--- NOTE | 2019-11-19 20:32 | NUR ---
GAVE ORDERED DUE MEDICATIONS AT THIS TIME. GAVE PRN PAIN MEDICATION FOR C/O HEADACHE AND PRN COUGH MEDICATION PER PATIENT REQUEST. PATIENT TOLERATED WELL. PATIENT SITTING AT BEDSIDE IN CHAIR IN STABLE CONDITION.
--- NOTE | 2019-11-19 21:25 | NUR ---
RECEIVED REPORT FROM AM SHIFT. PT SEEN AND ASSESSED. FOUND PT ON 14L OXYMIZER WITH SPO2 86%. ASSISTED PT INTO PRONE POSITION TO IMPROVE OXYGENATION. SPO2 90%. PT IN NO APPARENT RESPIRATORY DISTRESS AT THIS TIME. RN NOTIFIED. WILL CONTINUE TO MONITOR.
--- NOTE | 2019-11-19 23:10 | NUR ---
PATIENT SLEEP AT THIS TIME. RESPIRATIONS EVEN AND UNLABORED. BED IN LOW POSITION. CALL LIGHT WITHIN REACH. WILL CONTINUE TO MONITOR.
[2019-11-20] VITALS: BP 102/64
[2019-11-20] MEDS: PROMETH/CODEINE 6.25-10MG/5ML 5 ML UDC PO PRN ×4 (02:52→21:44)
[2019-11-20] MEDS: ACETAMINOPHEN 325 MG TAB PO PRN ×4 (02:53→22:02)
--- NOTE | 2019-11-20 03:09 | NUR ---
GAVE PRN PAIN MEDICATION FOR C/O HEADACHE AND PRN COUGH MEDICATION PER PATIENT REQUEST. PATIENT TOLERATED WELL. BED IN LOW POSITION. CALL LIGHT WITHIN REACH. WILL CONTINUE TO MONITOR.
[2019-11-20 04:00] VITALS: BP 110/69
--- NOTE | 2019-11-20 05:20 | NUR ---
GAVE PATIENT EXTRA PILLOW AND WATER PER PATIENT REQUEST. PATIENT IN STABLE CONDITION.
--- NOTE | 2019-11-20 07:30 | NUR ---
GAVE REPORT TO DAY SHIFT NURSE FOR CONTINUITY OF CARE. PATIENT IN STABLE CONDITION.
[2019-11-20 07:38] LABS: ANION GAP 12.2 (8-16); CARBON DIOXIDE 28.6 mmol/L (21-32); CREATININE 0.9 mg/dL (0.6-1.3); HEMATOCRIT 41.4 % (36-52); HEMOGLOBIN 13.7 g/dL (12.0-18.0); MEAN CORPUSCULAR HEMOGLOBIN 29 pg (27-31); MEAN CORPUSCULAR HGB CONC 33 g/dL (33-37); MEAN CORPUSCULAR VOLUME 89.1 fL (80-94); PLATELET COUNT (AUTO) 345 K/uL (140-450); POTASSIUM 3.8 mmol/L (3.5-5.1); RED BLOOD CELL COUNT(AUTO) 4.65 MIL/uL (4.20-6.10); RED CELL DISTRIBUTION WIDTH 14.3 % (11.6-13.7); WHITE BLOOD COUNT (AUTO) 10.2 K/uL (4.8-10.8)
[2019-11-20 07:42] LABS: MAGNESIUM 2.2 mg/dL (1.8-2.4); PHOSPHORUS 3.2 mg/dL (2.5-4.9)
[2019-11-20 08:00] VITALS: BP 102/64
--- NOTE | 2019-11-20 08:00 | NUR ---
RECEIVED REPORT FROM PM RN. PT IS STABLE. PT HAS A HX OF SLEEP APNEA, ASTHMA. PT IS A&OX4. 2G NA DIET. 20G LAC RUNNING NS AT 10ML/HR. SKIN IS INTACT. PT IS ON 13L OXIMIZER. WAITING FOR IV TUBING FOR PLASMA. PT IS ABLE TO AMBULATE. WILL CONTINUE TO MONITOR.
[2019-11-20 09:46] LABS: BASOPHILS % (MANUAL) 0 % (0-2); EOSINOPHILS % (MANUAL) 0 % (0-4); LYMPHOCYTES % (MANUAL) 10 % (20-46); METAMYELOCYTES % 2 % (0-0); MONOCYTES % (MANUAL) 3 % (5-12); MYELOCYTES % 2 % (0-0)
[2019-11-20] MEDS: PANTOPRAZOLE 40 MG INJ VIAL IVP SCH (10:00)
[2019-11-20] MEDS: DEXAMETHASONE 4 MG/ML VIAL IVP SCH (10:00)
[2019-11-20] MEDS: ENOXAPARIN 30 MG/0.3 ML SYR SUBQ SCH ×2 (10:09→21:44)
[2019-11-20] MEDS: ENOXAPARIN 120 MG/0.8 ML SYR SUBQ SCH ×2 (10:10→21:43)
--- NOTE | 2019-11-20 11:00 | NUR ---
REMOVED 20G IV IN LAC DUE TO OCCLUSION. NEW 20G IV PLACED ON RT FOREARM. ONLY 2 ATTEMPTS. PT TOLERATED PROCEDURE WELL.
[2019-11-20 12:06] VITALS: BP 98/56
--- NOTE | 2019-11-20 12:38 | NUR ---
RECIVED REPORT FROM PM RN. PT IS STABLE. PT HAS A HX OF SLEEP APNEA, ASTHMA. PT IS A&OX4. 2G NA DIET. 20G LAC RUNNING NS AT 10ML/HR. SKIN IS INTACT. PT IS ON 13L OXIMIZER. WAITING FOR IV TUBING FOR PLASMA. PT IS ABLE TO AMBULATE. WILL CONTINUE TO MONITOR. Addendum: 11/20/19 at 1245 by Yamile Christensen RN RN THIS NOTE IS A DUPLICATE OF THE 0800 NOTE.
--- NOTE | 2019-11-20 13:13 | NUR ---
PT IS SITTING IN A CHAIR EATING LUNCH. NO SIGNS OF DISTRESS. WILL CONTINUE TO MONITOR.
--- NOTE | 2019-11-20 15:46 | NUR ---
ADMINISTERED MEDICATION TO PT. PT TOLERATED PROCEDURE WELL. HELPED REPOSITION PT IN BED. WILL CONTINUE TO MONITOR
[2019-11-20 16:00] VITALS: BP 108/69
--- NOTE | 2019-11-20 17:00 | NUR ---
PT IS RESTING IN BED SITTING UP, AWAKE. NO SIGNS OF DISTRESS. RESPIRATIONS EVEN AND UNLABORED.
--- NOTE | 2019-11-20 19:17 | NUR ---
TRANSFER OF CARE TO PM MIRNA LAYTON. PT IS SITTING IN BED. 20G IN THE RT FOREARM RUNNING NS 10ML/HR. SKIN IS INTACT. RECOMMENDING MONITOR O2 SAT. LAST O2 SAT 92% AT 1600. PT IS COMFORTABLE.
--- NOTE | 2019-11-20 19:18 | NUR ---
RECEIVED BEDSIDE REPORT FROM DAY RN. PT IS AAOX4. RESPIRATIONS ARE EQUAL AND UNLABORED ON OXIMIZER 13L SAT WELL 95%. PT ON DROPLET PRECAUTION FOR COVID +. SIGN AT THE DOOR. C/C SOB DX A HYPOXIA. RFA 20G TKO Y TUBING SET UP WAITING FOR PLASMA. SKIN IS INTACT. PT CAN USES URINAL. AND ABLE TO MAKE NEEDS KNOWN. POC DISCUSSED WITH PT. CALL LIGHT IS WITHIN REACH. WILL ROUND FREQUENTLY.
[2019-11-20 20:00] VITALS: BP 118/59
--- NOTE | 2019-11-20 21:43 | NUR ---
VSS. RENEE MEDICATIONS GIVEN PER ORDERS. PRE TRANS VS: 109/69 HR 78 90% ON 13L RR 18. ALL NEEDS MET. CALL LIGHT IS WITHIN REACH.
--- NOTE | 2019-11-20 22:02 | NUR ---
CONVALESCENT PLASMA STARTED AT THIS TIME. VSS. ALL SAFETY MEASURES ARE IN PLACE. CALL LIGHT IS WITHIN REACH.
[2019-11-20] MEDS ORDERED: MELATONIN 3 MG TAB PO PRN (22:55)
--- NOTE | 2019-11-20 23:00 | NUR ---
PLASMA COMPLETE 15MIN AGO VS NOW : 103/70 HR 79 97.8 DENIES PAIN. ALL NEEDS MET. CALL LIGHT IS WITHIN REACH. WILL CONTINUE TO MONITOR.
[2019-11-21] VITALS: BP 100/49
--- NOTE | 2019-11-21 00:45 | NUR ---
STARTED 2ND UNIT OF PLASMA AT THIS TIME. PRE TRANSFUSION VSS. ALL NEEDS MET. CALL LIGHT IS WITHIN REACH. WILL CONTINUE TO MONITOR.
--- NOTE | 2019-11-21 01:15 | NUR ---
PLASMA TRANSFUSION COMPLETE. NO S/S OF ADVERSE REACTION. ASSISTED PT TO WALKING AROUND ROOM PT TOLERATED WELL. CALL LIGHT IS WITHIN REACH.
[2019-11-21] MEDS: PROMETH/CODEINE 6.25-10MG/5ML 5 ML UDC PO PRN ×4 (01:45→20:08)
--- NOTE | 2019-11-21 02:30 | NUR ---
PT IS RESTING COMFORTABLY IN BED. NO S/S OF DISTRESS. ALL SAFETY MEASURES ARE IN PLACE. CALL LIGHT IS WITHIN REACH.
[2019-11-21 04:00] VITALS: BP 105/56
--- NOTE | 2019-11-21 04:00 | NUR ---
VITAL SIGNS ARE WITHIN NORMAL LIMITS. TITRATED O2 FROM 13L TO NOW 11L PT SAT WELL 91% RR 20. ALL NEEDS MET. CALL LIGHT IS WITHIN REACH. WILL CONTINUE TO MONITOR.
--- NOTE | 2019-11-21 07:02 | NUR ---
PT IS SLEEPING COMFORTABLY IN BED SAT WELL 92% ON 11L OXIMIZER. CALL LIGHT IS WITHIN REACH. PT IS STABLE. WILL ENDORSE TO DAY RN.
--- NOTE | 2019-11-21 07:03 | NUR ---
RECEIVED REPORT FROM PROGRESSIVE CARE MANAGER NURSE. PATIENT SITTING IN BED SLEEPING, AROUSABLE BY VOICE. NO DISTRESS NOTED. RESPIRATIONS EVEN, UNLABORED, ON 13L/MIN VIA OXIMIZER WITH O2 SAT AT 90-92% WHEN ASLEEP. IV SITE INTACT, PATENT, AND SALINE LOCK. PATIENT IS OBESE. AAOX3, CALM, COOPERATIVE, SKIN COLOR APPROPRIATE TO ETHNICITY, WARM TO TOUCH. SKIN INTACT. REVIEWED PLAN OF CARE WITH PATIENT. PATIENT VERBALIZED UNDERSTANDING. SAFETY MEASURES IN PLACE, CALL LIGHT WITHIN REACH. WILL CONTINUE TO MONITOR.
[2019-11-21 07:31] LABS: BASOPHILS % (AUTO) 0.2 % (0.0-2.0); EOSINOPHILS # (AUTO) 0.1 K/uL (0-0.4); EOSINOPHILS % (AUTO) 1.2 % (0.0-4.0); HEMATOCRIT 41.2 % (36-52); HEMOGLOBIN 13.5 g/dL (12.0-18.0); LYMPHOCYTES % (AUTO) 9.4 % (20.5-51.1); MEAN CORPUSCULAR HEMOGLOBIN 29 pg (27-31); MEAN CORPUSCULAR HGB CONC 33 g/dL (33-37); MEAN CORPUSCULAR VOLUME 89.7 fL (80-94); MONOCYTES # (AUTO) 0.6 K/uL (0.8-1.0); MONOCYTES % (AUTO) 5.9 % (1.7-9.3); NEUTROPHILS # (AUTO) 8.7 K/uL (1.8-7.7); NEUTROPHILS % (AUTO) 83.3 % (42.2-75.2); PLATELET COUNT (AUTO) 413 K/uL (140-450); RED BLOOD CELL COUNT(AUTO) 4.59 MIL/uL (4.20-6.10); RED CELL DISTRIBUTION WIDTH 14.1 % (11.6-13.7); WHITE BLOOD COUNT (AUTO) 10.5 K/uL (4.8-10.8)
[2019-11-21 07:49] LABS: ANION GAP 17.7 (8-16); CARBON DIOXIDE 30.6 mmol/L (21-32); CREATININE 1.1 mg/dL (0.6-1.3); POTASSIUM 4.3 mmol/L (3.5-5.1)
[2019-11-21 08:00] VITALS: BP 99/59
[2019-11-21 08:04] LABS: MAGNESIUM 2.1 mg/dL (1.8-2.4); PHOSPHORUS 3.6 mg/dL (2.5-4.9)
[2019-11-21] MEDS: DEXAMETHASONE 4 MG/ML VIAL IVP SCH (09:17)
[2019-11-21] MEDS: PANTOPRAZOLE 40 MG INJ VIAL IVP SCH (09:17)
[2019-11-21] MEDS: ENOXAPARIN 30 MG/0.3 ML SYR SUBQ SCH ×2 (09:21→20:10)
[2019-11-21] MEDS: ENOXAPARIN 120 MG/0.8 ML SYR SUBQ SCH ×2 (09:21→20:10)
--- NOTE | 2019-11-21 09:22 | NUR ---
SCHEDULED MEDICATIONS DUE GIVEN. WILL CONTINUE TO MONITOR.
--- NOTE | 2019-11-21 11:30 | NUR ---
PATIENT SITTING AT BEDSIDE CHAIR WATCHING TV. NO DISTRESS NOTED. DENIES ANY PAIN. WILL CONTINUE TO MONITOR.
[2019-11-21 12:00] VITALS: BP 97/60
--- NOTE | 2019-11-21 13:30 | NUR ---
PATIENT SITTING IN BED TALKING ON HIS PHONE. CONDITION UNCHANGED. WILL CONTINUE TO MONITOR.
[2019-11-21 16:00] VITALS: BP 109/62
--- NOTE | 2019-11-21 16:15 | NUR ---
PATIENT COMPLAINS OF A COUGH, NO DISTRESS NOTED. CONDITION UNCHANGED. COUGH MEDICATION PRN GIVEN. WILL CONTINUE TO MONITOR.
--- NOTE | 2019-11-21 18:30 | NUR ---
PATIENT SITTING DOWN AT BEDSIDE CHAIR. NO DISTRESS NOTED. CONDITION UNCHANGED. WILL CONTINUE TO MONITOR.
--- NOTE | 2019-11-21 19:20 | NUR ---
GAVE REPORT TO GUARD SERGEANT NURSE FOR CONTINUITY OF CARE. PATIENT IN STABLE CONDITION.
--- NOTE | 2019-11-21 19:25 | NUR ---
RECEIVED BEDSIDE REPORT FROM DAY SHIFT NURSE. PT IS SITTING IN BED USING HIS PHONE. PT IS AWAKE, ALERT, AND ORIENTED X4. AMBULATORY AND ABLE TO MAKE NEEDS KNOWN. RESPIRATIONS EVEN AND UNLABORED. PT IS ON O2 13LPM/OXIMIZER. SKIN IS WARM, DRY, AND INTACT. ABDOMEN IS SOFT AND NON-TENDER. IV ACCESS ON RIGHT FOREARM G22 PATENT AND INTACT, SALINE LOCKED. PLAN OF CARE DISCUSSED. PT VERBALIZED UNDERSTANDING. PT DENIES ANY PAIN OR DISCOMFORT AT THIS TIME. PT KEPT COMFORTABLE. SAFETY MEASURES IN PLACE, CALL LIGHT WITHIN REACH. WILL CONTINUE TO MONITOR.
[2019-11-21 20:00] VITALS: BP 115/67
--- NOTE | 2019-11-21 20:10 | NUR ---
VITAL SIGNS STABLE. PT IN BED WITH HOB ELEVATED. O2 IN PLACE. O2 SAT 90-92%. PT VERBALIZED NO SOB. PT COUGHING WITH SCANT AMOUNT OF PHLEGM. PRN COUGH MEDICINE GIVEN ORDERED. NO OTHER REQUESTS MADE. SAFETY MEASURES IN PLACE. CALL LIGHT WITHIN REACH. WILL CONTINUE TO MONITOR.
--- NOTE | 2019-11-21 22:11 | NUR ---
PT IN BED WATCHING TV WITH HOB ELEVATED. RESPIRATIONS EVEN AND UNLABORED. O2 IN PLACE. PT NOT IN DISTRESS. PT KEPT COMFORTABLE. CALL LIGHT WITHIN REACH. WILL CONTINUE TO MONITOR.
[2019-11-22] VITALS: BP 127/69
--- NOTE | 2019-11-22 00:01 | NUR ---
VITAL SIGNS STABLE. O2 IN PLACE. O2 SAT 90%. PT DENIES ANY PAIN OR DISCOMFORT AT THIS TIME. NO REQUESTS MADE. PT KEPT COMFORTABLE. SAFETY MEASURES IN PLACE. CALL LIGHT WITHIN REACH. WILL CONTINUE TO MONITOR.
[2019-11-22] MEDS: PROMETH/CODEINE 6.25-10MG/5ML 5 ML UDC PO PRN ×2 (01:52→18:41)
--- NOTE | 2019-11-22 01:52 | NUR ---
PT CALLED AND COMPLAINS OF COUGHING. PRN COUGH MEDICINE GIVEN ORDERED. WILL CONTINUE TO MONITOR.
[2019-11-22 04:00] VITALS: BP 106/66
--- NOTE | 2019-11-22 04:16 | NUR ---
VITAL SIGNS STABLE. PT RESTING IN BED WITH HOB ELEVATED. RESPIRATIONS EVEN AND UNLABORED. O2 IN PLACE. VERBALIZED FEELING BETTER THAN YESTERDAY. NO REQUESTS MADE AT THIS TIME. SAFETY MEASURES IN PLACE. CALL LIGHT WITHIN REACH. WILL CONTINUE TO MONITOR.
[2019-11-22] MEDS: ACETAMINOPHEN 325 MG TAB PO PRN (06:39)
--- NOTE | 2019-11-22 06:39 | NUR ---
PATIENT COMPLAINS OF HEADACHE. TYLENOL GIVEN ORDERED. WILL CONTINUE TO MONITOR.
[2019-11-22 06:45] LABS: BASOPHILS % (AUTO) 0.4 % (0.0-2.0); EOSINOPHILS # (AUTO) 0.2 K/uL (0-0.4); EOSINOPHILS % (AUTO) 2.2 % (0.0-4.0); HEMATOCRIT 42.3 % (36-52); HEMOGLOBIN 14.1 g/dL (12.0-18.0); LYMPHOCYTES # (AUTO) 0.9 K/uL (2.0-11.5); MEAN CORPUSCULAR HEMOGLOBIN 30 pg (27-31); MEAN CORPUSCULAR HGB CONC 33 g/dL (33-37); MEAN CORPUSCULAR VOLUME 89.2 fL (80-94); MONOCYTES # (AUTO) 0.7 K/uL (0.8-1.0); MONOCYTES % (AUTO) 6.6 % (1.7-9.3); NEUTROPHILS # (AUTO) 8.5 K/uL (1.8-7.7); NEUTROPHILS % (AUTO) 81.8 % (42.2-75.2); PLATELET COUNT (AUTO) 475 K/uL (140-450); RED BLOOD CELL COUNT(AUTO) 4.74 MIL/uL (4.20-6.10); RED CELL DISTRIBUTION WIDTH 14.2 % (11.6-13.7); WHITE BLOOD COUNT (AUTO) 10.3 K/uL (4.8-10.8)
--- NOTE | 2019-11-22 07:10 | NUR ---
ENDORSED TO DAY SHIFT NURSE FOR CONTINUITY OF CARE. PT IS IN STABLE CONDITION.
[2019-11-22 07:12] LABS: ANION GAP 13.7 (8-16); CARBON DIOXIDE 28.5 mmol/L (21-32); POTASSIUM 4.2 mmol/L (3.5-5.1)
--- NOTE | 2019-11-22 07:20 | NUR ---
RECEIVED PATIENT FROM FIELD TECH NURSE. PATIENT IS CURRENTLY LAYING BED AWAKE, WITH NO SIGNS OF DISTRESS. RESPIRATIONS ARE EVEN AND UNLABORED ON 10L OXYMIZER WITH NO DIFFICULTIES BREATHING. SKIN IS INTACT WITH IV PATENT ASYMPTOMATIC AND INFUSING PER ORDERS. PATIENT DOES NOT COMPLAIN OF ANY PAIN AT THIS TIME. SAFETY MEASURES IN PLACE, BED IS IN LOW SEMI-FOWLERS POSITION, CALL LIGHT WITHIN REACH AND WILL CONTINUE TO MONITOR.
[2019-11-22 08:00] VITALS: BP 107/71
[2019-11-22] MEDS: ENOXAPARIN 30 MG/0.3 ML SYR SUBQ SCH (08:17)
[2019-11-22] MEDS: PANTOPRAZOLE 40 MG INJ VIAL IVP SCH (08:18)
[2019-11-22] MEDS: ENOXAPARIN 120 MG/0.8 ML SYR SUBQ SCH (08:18)
[2019-11-22] MEDS: DEXAMETHASONE 4 MG/ML VIAL IVP SCH (08:19)
--- NOTE | 2019-11-22 08:39 | NUR ---
ADMINISTERED MEDICATIONS PER ORDER AND TOLERATED WELL. PATIENT IS CURRENTLY SITTING UP IN BED ABOUT TO EAT BREAKFAST. PATIENT STATES THAT HE FEELS A LITTLE BIT BETTER AND IS READY TO GO HOME. SAFETY MEASURES IN PLACE AND WILL CONTINUE TO MONITOR PLAN OF CARE.
[2019-11-22 09:01] LABS: MAGNESIUM 2.2 mg/dL (1.8-2.4); PHOSPHORUS 4.2 mg/dL (2.5-4.9)
--- NOTE | 2019-11-22 09:10 | NUR ---
PATIENTS EKG LEADS WERE OFF WENT IN PATIENTS ROOM AND PATIENT IS SITTING AT BEDSIDE USING INCENTIVE SPIROMETER. PATIENT APOLOGIZED AND REPLACED TELE BOX. SAFETY MEASURES IN PLACE AND WILL CONTINUE TO MONITOR.
--- NOTE | 2019-11-22 11:00 | NUR ---
PATIENT CALLED AND ASKED FOR A PENCIL AND PAPER. PATIENT STATED THAT THERE ARE STILL BILLS TO PAY. PATIENT DOES NOT SHOW ANY SIGNS OF DISTRESS OR HAVE ANY COMPLAINTS OF PAIN. SAFETY MEASURES IN PLACE AND WILL CONTINUE TO MONITOR.
[2019-11-22 12:00] VITALS: BP 117/72
--- NOTE | 2019-11-22 13:00 | NUR ---
PATIENT IS CURRENTLY SITTING IN THE CHAIR AT BEDSIDE WITH NO SIGNS OF DISTRESS. PATIENT IS EATING LUNCH AND IS ASKING FOR HOT WATER. OXYMIZER IS NOW ON 9L WITH O2 SATURATIONS AT 90%. SAFETY MEASURES IN PLACE AND WILL CONTINUE TO MONITOR PLAN OF CARE.
--- NOTE | 2019-11-22 14:57 | NUR ---
PATIENT IS STILL IN CHAIR AT THE BEDSIDE WATCHING TV WITH NO DIFFICULTIES BREATHING. SAFETY MEASURES IN PLACE AND WILL CONTINUE TO MONITOR PLAN OF CARE
--- NOTE | 2019-11-22 15:20 | NUR ---
EKG SHOWS PATIENT IS CURRENTLY IN A. FIBB WITH HEART IN THE 140S. WILL NOTIFY PRIMARY CARE PHYSICIAN. PATIENT IS CURRENTLY TAKING A SPONGE BATH WITH NO SIGNS OF DISTRESS AT THIS TIME.
[2019-11-22] MEDS ORDERED: METOPROLOL 5 MG/5 ML VIAL IV ONE (15:25)
--- NOTE | 2019-11-22 15:50 | NUR ---
DR. CHAUDHARY IS AWARE OF UNCONTROLLED A. FIBB. DR. CHAUDHARY WILL PUT IN ORDERS FOR PATIENT. PATIENT IS CURRENTLY IN NO SIGNS OF DISTRESS AT THIS TIME. SAFETY MEASURES IN PLACE AND WILL CONTINUE OT MONITOR.
[2019-11-22] MEDS ORDERED: METOPROLOL 5 MG/5 ML VIAL IV SCH (15:52)
[2019-11-22 16:00] VITALS: BP 124/75
--- NOTE | 2019-11-22 16:15 | NUR ---
ADMINISTERED LOPRESSOR PER ORDERS. PATIENT IS CURRENTLY SITTING IN HIS CHAIR WITH NO SIGNS OF DISTRESS. SAFETY MEASURES IN PLACE AND WILL CONTINUE TO MONITOR.
--- NOTE | 2019-11-22 17:10 | NUR ---
REASSESS PATIENTS BP AND RHYTHM. HEART RATE WENT DOWN TO 120S. PATIENT ALSO HAD TROPONIN DRAWN AND WAITING FOR RESULTS.
--- NOTE | 2019-11-22 17:40 | NUR ---
PATIENTS HEART RATE IS CURRENTLY IN THE 140S AGAIN. WILL PAGE PHYSICIAN TO FOR NEXT ORDERS REGARDING PLAN OF CARE.
--- NOTE | 2019-11-22 17:50 | NUR ---
DR. LIANG PUT IN TORB OF CARDIZEM 10MG IV PUSH. WILL ADMINISTER MEDICATION SOON ITS VERIFIED BY PHARMACY. SAFETY MEASURE SIN PLACE AND WILL CONTINUE TO MONITOR PLAN OF CARE
[2019-11-22] MEDS ORDERED: DILTIAZEM 25 MG/5 ML VIAL IVP PRN (18:00)
--- NOTE | 2019-11-22 18:54 | NUR ---
ADMINISTERED CARDIZEM PER ORDER AND PATIENT TOLERATED WELL. PATIENT ALSO ASKED FOR COUGH MEDICINE AND MEDICATION HAS BEEN GIVEN. SAFETY MEASURES IN PLACE AND WILL ENDORSE TO COMPETITIVE SHOPPER NURSE FOR CONTINUITY OF CARE.
--- NOTE | 2019-11-22 19:30 | NUR ---
RECEIVED BEDSIDE REPORT FROM AM SHIFT RN FOR PT'S CONTINUITY OF CARE. PT IS AAOX4, IS ON INSULATION BOARD COATER OPERATOR, IS ON 8L OXYMIZER, PT IS AMBULATORY, HAS RIGHT FA 22G SALINE LOCK, AND SKIN IS INTACT. PT IS ON ISOLATION PRECAUTION FOR COVID INFECTION. SAFETY MEASURES, ISOLATION PRECAUTION, AND CALL LIGHT IS WITHIN REACH. WILL MONITOR PT THROUGHOUT SHIFT.
[2019-11-22 20:00] VITALS: BP 130/112
[2019-11-22] MEDS: APIXABAN 2.5 MG TAB PO SCH (21:37)
--- NOTE | 2019-11-22 21:37 | NUR ---
NOTIFIED BY DIRECTOR MOBILE RE: PT'S HR AT 140'S TO 160'S INTERMITTENTLY. FOUND PT SITTING UP IN BED, SHORT OF BREATH, WITH LABORED BREATHING. PT STATED "FEELS LIKE MY HEART IS BEATING FAST". INSTRUCTED PT TO LIE DOWN AND GET COMFORTABLE IN BED, RECOMMENDED NOT TO WALK AROUND THE ROOM, OVERHEARD PT TALKING ON THE PHONE PRIOR TO GOING IN THE PT'S ROOM, RECOMMENDED FOR PT TO BE OFF HIS PHONE AND RELAX, PT VERBALIZED UNDERSTANDING AND FOLLOWED RECOMMENDATIONS. INCREASED O2 TO 10L, PT SATURATING AT 90%-92%. ADMINISTERED SCHEDULED MEDICATION ORDERED. PT TOLERATED IT WELL. WILL CONTINUE TO MONITOR PT.
[2019-11-23] VITALS (7 sets, daily range): BP systolic 93–118; BP diastolic 41–74
--- NOTE | 2019-11-23 | NUR ---
PT C/O PRODUCTIVE COUGHING, AND RESTLESSNESS DT COUGH. REQUESTED FOR COUGH MEDICATION. ADMINISTERED PRN PO COUGH MEDICATION ORDERED. PT TOLERATED IT WELL. PT REQUESTED TO LOWER DOWN OXYGEN LITERS, PER PT, BREATHING IS MUCH BETTER THAN EARLIER, JUST THE PERSISTENT COUGH THAT IS BOTHERING HIM RIGHT NOW. DECREASED O2 TO 8L, STAYED WITH PT, O2 SAT STAYED AT 90%. WILL CONTINUE TO MONITOR PT.
--- NOTE | 2019-11-23 02:00 | NUR ---
PT REQUESTED FOR O2 TO BE DECREASED. PT EDUCATION GIVEN RE: DECREASE OF O2, PT VERBALIZED UNDERSTANDING. AGREED TO KEEP O2 AT 8L. PT EDUCATION GIVEN RE: DEEP BREATHING AND COUGHING AND USE OF IS. PT VERBALIZED UNDERSTANDING.
--- NOTE | 2019-11-23 06:15 | NUR ---
ALANNA AND RECEIVED RENEWAL OF ORDER FOR PT'S PROMETHAZINE AND LOZENGES. NOTIFIED PT, AND PT VERBALIZED UNDERSTANDING. REMINDED PT THE BREATHING EXERCISES, PT VERBALIZED UNDERSTANDING. PT REQUESTED TO DECREASE O2, O2 DECREASED TO 7L, STAYED WITH PT, PT SATURATING AT 90%. WILL ENDORSE PT TO AM SHIFT RN FOR PT'S CONTINUITY OF CARE.
[2019-11-23 07:05] LABS: BASOPHILS % (AUTO) 0.4 % (0.0-2.0); EOSINOPHILS # (AUTO) 0.3 K/uL (0-0.4); EOSINOPHILS % (AUTO) 2.3 % (0.0-4.0); HEMATOCRIT 42.7 % (36-52); LYMPHOCYTES # (AUTO) 1.1 K/uL (2.0-11.5); LYMPHOCYTES % (AUTO) 9.6 % (20.5-51.1); MEAN CORPUSCULAR HEMOGLOBIN 29 pg (27-31); MEAN CORPUSCULAR HGB CONC 33 g/dL (33-37); MEAN CORPUSCULAR VOLUME 88.8 fL (80-94); MONOCYTES # (AUTO) 0.7 K/uL (0.8-1.0); MONOCYTES % (AUTO) 6.3 % (1.7-9.3); NEUTROPHILS # (AUTO) 9.1 K/uL (1.8-7.7); NEUTROPHILS % (AUTO) 81.4 % (42.2-75.2); PLATELET COUNT (AUTO) 533 K/uL (140-450); RED BLOOD CELL COUNT(AUTO) 4.81 MIL/uL (4.20-6.10); RED CELL DISTRIBUTION WIDTH 14.4 % (11.6-13.7); WHITE BLOOD COUNT (AUTO) 11.1 K/uL (4.8-10.8)
[2019-11-23 07:10] LABS: MAGNESIUM 1.9 mg/dL (1.8-2.4); PHOSPHORUS 3.6 mg/dL (2.5-4.9)
--- NOTE | 2019-11-23 07:10 | NUR ---
RECEIVED REPORT FROM JAVA CONSULTANT NURSE. PATIENT IS CURRENTLY SLEEPING IN BED WITH NO SIGNS OF DISTRESS AT THIS TIME. RESPIRATIONS ARE EVEN AND UNLABORED ON 7L OXYMIZER WITH NO DIFFICULTIES BREATHING AND O2 SATURATIONS ARE CURRENTLY AT 91%. SKIN IS INTACT WITH IV PATENT ASYMPTOMATIC AND INFUSING PER ORDERS. BED IS IN LOW SEMI-FOWLERS POSITION WITH CALL LIGHT WITHIN REACH AND SAFETY MEASURES IN PLACE. WILL CONTINUE TO MONITOR PLAN OF CARE.
[2019-11-23 07:20] LABS: ANION GAP 10.6 (8-16); CARBON DIOXIDE 27.2 mmol/L (21-32); CREATININE 1.1 mg/dL (0.6-1.3); POTASSIUM 3.8 mmol/L (3.5-5.1)
[2019-11-23] MEDS: PANTOPRAZOLE 40 MG INJ VIAL IVP SCH (08:29)
[2019-11-23] MEDS: APIXABAN 2.5 MG TAB PO SCH ×2 (08:29→21:03)
[2019-11-23] MEDS: BENZOCAINE/MENTHOL 1 LOZ MM PRN ×2 (08:30→19:00)
[2019-11-23] MEDS: DEXAMETHASONE 4 MG/ML VIAL IVP SCH (08:30)
--- NOTE | 2019-11-23 08:41 | NUR ---
ADMINISTERED MEDICATIONS PER ORDER AND TOLERATED WELL. PATIENT IS CURRENTLY SITTING AT BEDSIDE EATING BREAKFAST WITH NO SIGNS OF DISTRESS. SAFETY MEASURES IN PLACE AND WILL CONTINUE TO MONITOR.
--- NOTE | 2019-11-23 10:53 | NUR ---
PATIENT IS CURRENTLY SITTING IN THE CHAIR TALKING ON THE PHONE WITH NO COMPLAINTS OF PAIN AT THIS TIME. PATIENTS STATED THAT HE WOULD LIKE SOME COUGH MEDICINE. WILL ADMINISTER PROMETHAZINE FOR COUGH TO PATIENT
--- NOTE | 2019-11-23 11:03 | NUR ---
11/23/19 RD FOLLOW UP COMPLETED PLEASE REFER TO NUTRITION ASSESSMENT UNDER CARE ACTIVITY FOR ESTIMATED NUTRITIONAL NEEDS. 1. CONTINUE MECHANICAL SOFT NA2GM DIET TOLERATED 2. CONTINUE ENSURE BID 3. RD TO FOLLOW-UP 3-5 DAYS, MODERATE RISK MARU KATE RD
[2019-11-23] MEDS: PROMETH/CODEINE 6.25-10MG/5ML 5 ML UDC PO PRN ×3 (11:43→17:10)
--- NOTE | 2019-11-23 11:52 | NUR ---
ADMINISTERED PROMETHAZINE TO PATIENT FOR COUGH. PATIENT IS IN NO SIGNS OF DISTRESS AT THIS TIME. SAFETY MEASURES IN PLACE AND WILL CONTINUE TO MONITOR.
--- NOTE | 2019-11-23 13:10 | NUR ---
PATIENT IS CURRENTLY SITTING UP IN CHAIR NEXT TO BED WITH NO SIGNS OF DISTRESS. SAFETY MEASURES IN PLACE AND WILL CONTINUE WITH PLAN OF CARE.
--- NOTE | 2019-11-23 14:25 | NUR ---
PATIENT USED CALL LIGHT TO ASK FOR WATER. PATIENT STATS THAT HE FEELS A LOT BETTER AND IS READY TO GO HOME. PATIENT IS CURRENTLY ON 6L OXYMIZER AND WILL TITRATE DOWN APPROPRIATE.
--- NOTE | 2019-11-23 15:41 | NUR ---
EDIBLE ARRANGEMENTS HAVE BEEN DELIVERED FOR PATIENT. PATIENT IS AWAKE AND SITTING IN CHAIR NEXT TO BED. SAFETY MEASURES IN PLACE AND WILL CONTINUE TO MONITOR.
--- NOTE | 2019-11-23 17:17 | NUR ---
PATIENT IS COUGHING AND HAS ASKED FOR SOME COUGH MEDICINE. PROMETHAZINE HAS BEEN GIVEN FOR COUGH ORDERED. SAFETY MEASURES IN PLACE AND WILL CONTINUE TO MONITOR.
--- NOTE | 2019-11-23 19:10 | NUR ---
ENDORSE TO BATCH ROLLER OPERATOR NURSE. PATIENT IS IN STABLE CONDITION.
--- NOTE | 2019-11-23 20:00 | NUR ---
RECEIVED PATIENT AWAKE AND ALERT. PT SITTING IN THE CHAIR AT BEDSIDE. PT ON 5L O2 VIA OXYMIZER. NO S/S OF DISTRESS OR C/O PAIN. PT ON TELE MONITORING. CALL LIGHT WITHIN REACH
--- NOTE | 2019-11-23 21:03 | NUR ---
ADMINISTERED SCHEDULED MEDS. PT TOLERATED WELL
--- NOTE | 2019-11-24 01:17 | NUR ---
PT ASLEEP IN BED. NO S/S OF DISTRESS NOTED AT THIS TIME
--- NOTE | 2019-11-24 04:30 | NUR ---
PT TITRATED DOWN TO 4L. O2 SAT 92%. NO S/S OF DISTRESS NOTED AT THIS TIME
[2019-11-24 05:07] VITALS: BP 113/71
[2019-11-24 07:52] VITALS: BP 111/75
[2019-11-24] MEDS: DEXAMETHASONE 4 MG/ML VIAL IVP SCH (09:34)
[2019-11-24] MEDS: PANTOPRAZOLE 40 MG INJ VIAL IVP SCH (09:34)
[2019-11-24] MEDS: PROMETH/CODEINE 6.25-10MG/5ML 5 ML UDC PO PRN ×3 (09:35→20:32)
[2019-11-24] MEDS: BENZOCAINE/MENTHOL 1 LOZ MM PRN ×3 (09:35→20:32)
[2019-11-24] MEDS: APIXABAN 2.5 MG TAB PO SCH ×2 (09:35→20:31)
[2019-11-24 11:56] VITALS: BP 105/57
--- NOTE | 2019-11-24 15:29 | NUR ---
RECEIVED PATIENT REPORT AT 1210 PATIENT IS AAOX4, DENIES PAIN, NOTED OXYMIZER AT 4LPM SATURATION AT 94%, HE IS SITTING ON A CHAIR WITH BED SIDE TABLE. HE IS RESTING COMFORTABLY AND WATCHING TV WHILE EATING. IS ON BEDSIDE TABLE. PATIENT AGREES TO USE IT FOR HIS CONTINUATION OF CARE. POC WAS EXPLAINED TO HIM AND HE VERBALIZED UNDERSTANDING OF CONTINUITY OF CARE. SKIN INTACT. IV NOTED PATENT AND INTACT. AT 1438 TITRATED DOWN OXYGEN TO 3LPM. HIS SATURATION IS AT 93-94%. HE IS ABLE TO TALK AND HAVE A CONVERSATION WITHOUT OVEREXERTION. PATIENT IS PLEASANT TO TALK TO.
--- NOTE | 2019-11-24 15:39 | NUR ---
NOTED DROPLET PRECAUTIONS ARE IN PLACE
[2019-11-24 16:55] VITALS: BP 101/54
--- NOTE | 2019-11-24 17:40 | NUR ---
AT 1613 GAVE PATIENT FOOD THAT FAMILY DROPPED OFF FOR HIM. PATIENT IS GIVING HIMSELF A SPONGE BATH, NO S/S OF ACUTE DISTRESS PATIENT STATED, "I AM DOING IT SLOWLY TO NOT OVEREXERT MYSELF" AT 1740 GAVE PATIENT DESIRED MEDICATION FOR SORE THROAT AND COUGH. PATIENT SWALLOWED WITHOUT DIFFICULTY. PATIENT C/O ROOM IS HOT HOWEVER RN SPOKE WITH EMILY LOUISASSIGNMENT AGENT AND COULD NOT APPROVE A FAN. ALSO, RN ASKED FOR ENGINEERING TO BE CALLED HOWEVER, IT WAS MADE AWARE TO THE RN THAT THE AC IN THAT ROOM DOES NOT WORK PROPERLY. EMILY LOUISASSIGNMENT AGENT MADE AWARE THE BACK ROOMS IN TELEMETRY 118, 117, 116, 115, 114 AIR CONDITIONER IS NOT WORKING HE STATED, "ILL CALL ENGINEERING"
--- NOTE | 2019-11-24 19:13 | NUR ---
GAVE REPORT TO ZAYDA LAYTON SERVICE LOSS CONTROL CONSULTANT. PATIENT IS SITTING IN CHAIR. NO S/S OF ACUTE DISTRESS. PATIENT C/O HOW HOT THE ROOM IS. PATIENT WAS MADE AWARE THAT ENGINEERING WERE NOTIFIED AND WERE WORKING ON THE PROBLEM PER EMILY EXOTIC DANCER AND THAT A FAN WAS NOT POSSIBLE TO USE IN THE ROOM PER EXOTIC DANCER. ENDORSED PATIENT TO ZAYDA LAYTON IN STABLE CONDITION.
--- NOTE | 2019-11-24 19:14 | NUR ---
RECEIVED REPORT FROM GAYE LAYTON, FOR CONTINUITY OF CARE. PT IS AA&OX4. COVID-19 POSITIVE; RESPIRATIONS ARE EVEN AND UNLABORED, BREATHING TO 3L NC. RFA 22G IS PATENT AND INTACT, SALINE LOCK. REVIEWED PLAN OF CARE. DROPLET PRECAUTIONS IN PLACE. TELE MONITOR ATTACHED, SINUS RHYTHM ON THE MONITOR. SAFETY MEASURES IN PLACE; CALL LIGHT WITHIN REACH, BED IN LOW POSITION. NO DISTRESS NOTED. WILL CONTINUE TO MONITOR. Addendum: 11/24/19 at 2046 by Karin Ayon RN BREATHING TO 3L VIA OXIMIZER.
[2019-11-24 20:00] VITALS: BP 106/67
--- NOTE | 2019-11-24 20:05 | NUR ---
PT SITTING AT BEDSIDE EATING ON 3L OXY 93% HR 99 DENIES SOB PT OBESRVED/ASSESSED FROM DOOR DUE TO COVID
--- NOTE | 2019-11-24 20:32 | NUR ---
SCHEDULED MEDICATIONS GIVEN, WITH MEDICATION EDUCATION PROVIDED. PRN COUGH MEDICATION ALSO GIVEN, FOR PT COMPLAINTS OF COUGH. PT TOLERATED PO MEDICATIONS WELL. SPO2: 94%, O2 TITRATED DOWN FROM 3L TO 2 LPM VIA OXIMIZER, WITH PT INSTRUCTED TO CALL FOR ASSISTANCE IF HE IS NOT ABLE TO TOLERATE THE LOWER 02. NO ACUTE DISTRESS NOTED. WILL CONTINUE TO MONITOR.
[2019-11-25] VITALS: BP 130/54
--- NOTE | 2019-11-25 02:16 | NUR ---
PT COMPLAINS OF COUGH, REQUESTING PRN COUGH MEDICATION. WILL ADMINISTER COUGH MEDICATION WHEN DUE. SPO2 90% ON 2LPM OXIMIZER. TITRATED O2 DOWN FROM 2LPM TO 1LPM, PT'S O2 REMAINS AT 90%. PT INSTRUCTED TO CALL FOR ASSISTANCE IF EXPERIENCING SOB. WILL CONTINUE TO MONITOR.
[2019-11-25] MEDS: PROMETH/CODEINE 6.25-10MG/5ML 5 ML UDC PO PRN (02:46)
--- NOTE | 2019-11-25 02:46 | NUR ---
PT'S PRN COUGH MEDICATION ADMINISTERED, AT PT'S REQUEST, FOR COMPLAINTS OF COUGH. PT IS SITTING UP IN CHAIR, LEANING OVER BEDSIDE TABLE. SPO2: 89% ON 1LPM OXIMIZER. NO COMPLAINTS OF SOB; PT STATES HE CANNOT SLEEP BECAUSE OF COUGH AND SLEEP APNEA. NO ACUTE DISTRESS NOTED. WILL CONTINUE TO MONITOR. TELE MONITOR ATTACHED. SAFETY MEASURES IN PLACE.
[2019-11-25 04:00] VITALS: BP 114/67
--- NOTE | 2019-11-25 06:47 | NUR ---
PT IS RESTING IN BED, AROUSABLE TO VOICE. SPO2: 88% ON 1LPM OXIMIZER. NO DISTRESS NOTED. SAFETY MEASURES IN PLACE. TELE MONITOR ATTACHED. WILL ENDORSE TO DAYSHIFT NURSE.
[2019-11-25 08:00] VITALS: BP 106/58
--- NOTE | 2019-11-25 08:10 | NUR ---
RECEIVED BEDSIDE REPORT FROM ZAYDA LAYTON. AAOX4, NO C/O PAIN RESPIRATIONS ARE EVEN AND UNLABORED ON OXIMIZER 2L. SKIN IS INTACT. IV ON LH 20G ON SL. SAFETY PRECAUTION IN PLACE. ISOLATION PRECAUTION OBSERVED CALL LIGHT IS WITHIN REACH. WILL CONTINUE TO MONITOR.
[2019-11-25] MEDS: APIXABAN 2.5 MG TAB PO SCH (09:00)
[2019-11-25] MEDS: PANTOPRAZOLE 40 MG INJ VIAL IVP SCH (09:00)
[2019-11-25] MEDS: DEXAMETHASONE 4 MG/ML VIAL IVP SCH (09:00)
--- NOTE | 2019-11-25 09:00 | NUR ---
WITH C/O DRY COUGH. PROMETHAZINE WITH CODEINE GIVEN ORDERED
--- NOTE | 2019-11-25 09:55 | NUR ---
DUE MORNING MEDS GIVEN ORDERED
--- NOTE | 2019-11-25 10:00 | NUR ---
CHANGED OXIMIZER TO NASAL CANNULA. PT NOW ON O2 3L VIA NASAL CANNULA. O2SAT 93-94% AT REST, 87-88% WHEN AMBULATING.
[2019-11-25 12:00] VITALS: BP 115/71
--- NOTE | 2019-11-25 12:00 | NUR ---
PT IN CHAIR, NO C/O PAIN, NO SOB, O2SAT 93% ON 3L NC
[2019-11-25] MEDS ORDERED: ALBU0.0912 INH (13:01)
[2019-11-25] MEDS ORDERED: APIX5TAB PO (13:01)
[2019-11-25] MEDS ORDERED: BUDE1AER IH (13:01)
[2019-11-25] MEDS ORDERED: PRED10TA5 PO (13:01)
--- NOTE | 2019-11-25 14:40 | NUR ---
PT IN CHAIR, NO APPARENT DISTRESS, O2SAT 92% ON 3L NC
[2019-11-25 16:00] VITALS: BP 119/59
--- NOTE | 2019-11-25 17:00 | NUR ---
WITH DISCHARGE ORDER NOTED. WAITING FOR [facility] TO DELIVER HOME O2
--- NOTE | 2019-11-25 18:00 | NUR ---
DISCHARGE INSTRUCTIONS AND PRESCRIPTION GIVEN. DEMONSTRATED TO PT HOW TO USE O2 TANK. PT VERBALIZED UNDERSTANDING. INSTRUCTED TO ISOLATE HIMSELF AT HOME FOR 2 WEEKS. IV REMOVED WITH LUMEN INTACT. ID BAND REMOVED. DISCHARGE PAPERS SIGNED. PT HAS COPY OF DISCHARGE PAPERS
--- NOTE | 2019-11-25 18:20 | NUR ---
PT PICKED UP BY VIA PRIVATE VEHICLE. PT ON O2 3L NC VIA PORTABLE TANK. STABLE UPON DISCHARGE
== END 2019-11-25 18:20 | disposition home or self-care (01) | DRG 871 ==
LOC: MED 09:28 → EEVIPCON 09:28 → MTU 13:26
PROVIDERS: ADMIT Hospitalist; ATTEND Hospitalist
PROC: 30233K1 Transfusion of Nonautologous Frozen Plasma into Peripheral Vein, Percutaneous Approach (ICD-10-PCS; principal; 2019-11-18)
DX: A41.89 Other specified sepsis (principal); U07.1 COVID-19; J12.89 Other viral pneumonia; J96.01 Acute respiratory failure with hypoxia; Z68.43 Body mass index [BMI] 50.0-59.9, adult; N17.9 Acute kidney failure, unspecified; E87.3 Alkalosis; J45.901 Unspecified asthma with (acute) exacerbation; R79.89 Other specified abnormal findings of blood chemistry; E66.01 Morbid (severe) obesity due to excess calories; D72.810 Lymphocytopenia; G47.33 Obstructive sleep apnea (adult) (pediatric); Z91.19 Patient's noncompliance with other medical treatment and regimen; Z99.81 Dependence on supplemental oxygen
CPT/HCPCS: 36415; 71045; 80048; 80053; 80076; 82728; 83615; 83625; 83735; 83880; 84100; 84484; 85025; 85379; 85384; 85610; 85730; 86140; 86900; 86901; 93005; 96374; 99291; C9113; J0456; J0696; J1100; J1650; J1940; J2060; J2405; J3490; J7030; J7060; P9017; Q0092